=== PATIENT | female | born 1985 | race African-American/Black ===

== ENCOUNTER 2016-09-27 21:51 | Emergency (ER) | payer BC, MEDICAID ==
[~2016-09-27] VITALS: Ht 157.5 cm; Wt 105.0 kg
[~2016-09-27 21:51] MED LIST: CYCL5TAB PO; GABA100C4 PO; PERC5TAB12 PO
[2016-09-27 21:53] VITALS: BP 142/90; PULSE 85; RESP 16; TEMP 98.6; O2SAT 99
--- NOTE | 2016-09-27 22:27 | PD ---
Physical Exam Date Seen by Provider: Sep 27, 2016 Time Seen by Provider: 22:24 Narrative 31 yo female here for evaluation of throat swelling and pain. Has white patches on the left mouth. Pain to the left anterior neck. Going on for a couple of day. No fevers. Throat has been swollen for months. Pain is new. Unknown why swollen throat. Vitals sign stable. Patient awaiting bed placement. Data Data Last Documented VS Vital Signs Date Time Temp Pulse Resp B/P Pulse Ox O2 Delivery O2 Flow Rate FiO2 09/27/16 21:53 98.6 85 16 142/90 99 Room Air [facility] Medical Record Reviewed: Yes Supervised Visit with SO: Jamar Bustamante Sep 27, 2016 22:27
--- NOTE | 2016-09-27 23:47 | PD ---
HPI Chief Complaint: ENT Complaint Time Seen by Provider: 23:44 Travel History International Travel<30 days: No Contact w/Intl Traveler<30days: No Traveled to known affect area: No History of Present Illness HPI Patient is a 31-year-old female presenting to emergency room for evaluation of sore throat and white patches on her tonsils. Patient states she just noticed a white patches. She denies any fevers, chills, dysphasia. She states that her primary care provider is evaluating her for a thyroid problem. She recently had an ultrasound performed as outpatient. He states the pain is more of an irritation in her throat. PFSH Past Medical History Diminished Hearing: No Thyroid Disease: Yes ?: Not LMP: 09/25/16 : 2 Para: 2 Miscarriage: 0 : 0 Past Surgical History Section: Yes Social History Alcohol Use: No Tobacco Use: No Substance Use: No Allergies-Medications (Allergen,Severity, Reaction): Coded Allergies: No Known Allergies (Verified , 09/27/16) Reported Meds & Prescriptions Reported Meds & Active Scripts Active Amoxicillin 875 Mg Tab 875 Mg PO BID 10 Days Flexeril (Cyclobenzaprine HCl) 5 Mg Tab 5 Mg PO Q8H PRN Percocet 5-325 mg (Oxycodone/Acetaminophen) Oxycodone 5/325 Acetaminophen Tab 1 Tab PO Q6H PRN Reported Gabapentin 100 Mg Cap Unknown Dose PO BID Review of Systems Except as stated in HPI: all other systems reviewed are Neg HENT: Positive: Sore Throat Physical Exam Narrative GENERAL: Well-nourished, well-developed patient. SKIN: Focused skin assessment warm/dry. HEAD: Normocephalic. ENT: Mucosa pink and moist. Mild erythema, white exudates noted to bilateral tonsils. No uvular edema. No uvular, palatal, or tonsillar deviation. Airway patent. Nasal turbinates appear normal without nasal blood, purulent drainage or septal hematoma. EYES: No scleral icterus. No injection or drainage. NECK: Supple, trachea midline. No JVD or lymphadenopathy. Goiter CARDIOVASCULAR: Regular rate and rhythm without murmurs, gallops, or rubs. RESPIRATORY: Breath sounds equal bilaterally. No accessory muscle use. GASTROINTESTINAL: Abdomen soft, non-tender, nondistended. MUSCULOSKELETAL: No cyanosis, or edema. BACK: Nontender without obvious deformity. No CVA tenderness. Data Data Last Documented VS Vital Signs Date Time Temp Pulse Resp B/P Pulse Ox O2 Delivery O2 Flow Rate FiO2 09/27/16 21:53 98.6 85 16 142/90 99 Room Air Orders Group A Rapid Strep Screen (09/27/16 23:43) Strep Culture (Group A) (09/27/16 23:40) Amoxicillin (Trimox) (09/28/16 00:15) MDM Medical Decision Making Medical Screen Exam Complete: Yes Emergency Medical Condition: Yes Interpretation(s) Vital Signs Date Time Temp Pulse Resp B/P Pulse Ox O2 Delivery O2 Flow Rate FiO2 09/27/16 21:53 98.6 85 16 142/90 99 Room Air Differential Diagnosis Strep pharyngitis versus upper respiratory infection versus allergic rhinitis versus other Narrative Course Patient is a 31-year-old female presenting to the emergency department for evaluation of white patches on her tonsils. She reports just noticing them yesterday. On exam patient was noted to have an enlarged thyroid. She states that her primary doctor has performed an ultrasound as outpatient and she is waiting for her follow-up appointment. She denies any dysphasia, no stridor noted on exam. Her vital signs are stable. Strep screen ordered and pending. Screen is negative. Patient be treated empirically. She is encouraged follow- up with her primary doctor, she was encouraged to return to emergency department for any new or worsening symptoms. Patient verbalized understanding of instructions. Patient stable for discharge. Diagnosis Primary Impression: Exudative pharyngitis Referrals: Primary Care Physician Patient Instructions: General Instructions, Pharyngitis (ED) Additional Instructions: Follow-up with her primary care provider Please full course of antibiotics as prescribed Return to emergency department for any new or worsening symptoms Med/Other Pt SpecificInfo: Prescription(s) given Scripts Amoxicillin 875 Mg Imr253 Mg PO BID 10 Days Ref 0 Prov:Naina Pelletier 09/28/16 Disposition: 01 DISCHARGE HOME Condition: Stable Naina Pelletier Sep 27, 2016 23:47
[2016-09-28] MEDS ORDERED: AMOX875T PO (00:14)
[2016-09-28] MEDS ORDERED: AMOXICILLIN 875 MG TAB PO ONE (00:15)
== END 2016-09-28 01:00 | disposition home or self-care (01) ==
LOC: NEPD 21:51
DX: J02.9 Acute pharyngitis, unspecified (principal)
CPT/HCPCS: 87081; 87880; 99283

== ENCOUNTER 2016-11-22 16:57 | Emergency (ER) | payer BC ==
[~2016-11-22] VITALS: Ht 157.5 cm; Wt 104.5 kg
[~2016-11-22 16:57] MED LIST changes: +AMOX875T PO
[2016-11-22 16:59] VITALS: BP 134/87; PULSE 96; RESP 20; TEMP 98.6; O2SAT 98
--- NOTE | 2016-11-22 17:27 | PD ---
Physical Exam Date Seen by Provider: Nov 22, 2016 Time Seen by Provider: 17:26 Narrative 31 y/o female with c/o anterior neck pain and swelling over the past several days. No difficulty swallowing or breathing. No Fever or Chills. No Erythema. Pain is a 9/10. Vital signs reviewed. Patient stable. Awaiting Bed placement. Data Data Last Documented VS Vital Signs Date Time Temp Pulse Resp B/P Pulse Ox O2 Delivery O2 Flow Rate FiO2 11/22/16 16:59 98.6 96 20 134/87 98 MDM Medical Record Reviewed: Yes Supervised Visit with SO: Yes Condition: Stable Walter Mancilla Nov 22, 2016 17:27
--- NOTE | 2016-11-22 20:10 | PD ---
HPI Chief Complaint: ENT Complaint Time Seen by Provider: 20:07 Travel History International Travel<30 days: No Contact w/Intl Traveler<30days: No Traveled to known affect area: No History of Present Illness HPI 31-year-old black female presents to emergency department with complaints of sore throat for the past 2-3 days. She states that she has noted some swelling in her neck for the past week. She has been seen by her doctor regarding enlarged thyroid gland in the past. She states that she was most to have outpatient testing but it was declined by her insurance. The patient states that she has been in her normal state of health prior. She has had no fever chills. No ear pain, runny nose, cough, congestion, difficulty swallowing. No chest pain, palpitations or shortness of breath. She states the pain is in the anterior neck. PFSH Past Medical History Narrative Medical Thyroid disorder Diminished Hearing: No Thyroid Disease: Yes Tetanus Vaccination: < 5 Years ?: Not LMP: 11/2016 : 2 Para: 2 Miscarriage: 0 : 0 Past Surgical History Narrative Surgical Appendectomy, Section: Yes Social History Alcohol Use: No Tobacco Use: No Substance Use: No Allergies-Medications (Allergen,Severity, Reaction): Coded Allergies: No Known Allergies (Verified , 11/22/16) Reported Meds & Prescriptions Reported Meds & Active Scripts Active Amoxicillin 875 Mg Tab 875 Mg PO BID 10 Days Flexeril (Cyclobenzaprine HCl) 5 Mg Tab 5 Mg PO Q8H PRN Percocet 5-325 mg (Oxycodone/Acetaminophen) Oxycodone 5/325 Acetaminophen Tab 1 Tab PO Q6H PRN Reported Gabapentin 100 Mg Cap Unknown Dose PO BID Review of Systems Except as stated in HPI: all other systems reviewed are Neg Physical Exam Narrative GENERAL: Well-developed, well-nourished in no acute distress. Nontoxic appearing. HEAD: Normocephalic, atraumatic. EYES: Pupils equal round and reactive. Extraocular motions intact. No scleral icterus. No injection or drainage. ENT: TMs clear without erythema. The external auditory canals clear. Nose: clear . Posterior pharynx is pink and moist. No tonsillar edema or exudate. Uvula midline. Airway patent. NECK: Trachea midline.Supple, nontender, moves head freely. No central bony tenderness or spasm. Patient has a large thyroid gland which is both visible and palpable. There is no pain on palpation. No nodules identified. There is no venous hum. CARDIOVASCULAR: Regular rate and rhythm without murmurs, gallops, or rubs. RESPIRATORY: Clear to auscultation. Breath sounds equal bilaterally. No wheezes , rales, or rhonchi. GASTROINTESTINAL: Abdomen soft, non-tender, nondistended. No hepato-splenomegaly , or palpable masses. No guarding. EXTREMITIES: No clubbing, cyanosis, or edema. No joint tenderness, effusion, or edema noted. BACK: Nontender without deformity or crepitance. No flank tenderness. Data Data Last Documented VS Vital Signs Date Time Temp Pulse Resp B/P Pulse Ox O2 Delivery O2 Flow Rate FiO2 11/22/16 16:59 98.6 96 20 134/87 98 MDM Medical Decision Making Medical Screen Exam Complete: Yes Emergency Medical Condition: No Medical Record Reviewed: Yes Differential Diagnosis Differential diagnosis: Strep throat, mono, goiter, thyroid disease Narrative Course A medical screening exam was performed: At the time of evaluation the presenting medical condition was determined not to be of an emergent nature. The patient was given the option of receiving additional care, but declined. Patient was given options for additional community resources from which to obtain care. The Patient Has Been advised to seek medical attention for their presenting complaint. The patient has been advised to return to the ER at any time if an emergent condition develops. Diagnosis Primary Impression: Encounter for medical screening examination Condition: Cricket Conti Nov 22, 2016 20:10
== END 2016-11-22 20:17 | disposition left against medical advice (07) ==
LOC: NEPK 16:57
DX: M54.2 Cervicalgia (principal)
CPT/HCPCS: 99281